=== PATIENT | male | born 1945 | race Caucasian/White ===

== ENCOUNTER 2016-05-18 10:34 | Emergency (ER) | payer MEDICARE, OTHER ==
[~2016-05-18] VITALS: Ht 172.7 cm; Wt 80.9 kg
[~2016-05-18 10:34] MED LIST: ADVAIR 250/28 DISKU1 IH; ALEVE 220MG220 MG PO; ALLEGRA-D 12 HO1 TER PO; AMARYL; AMARYL4 MG PO; AMBIEN 5MG TABLE5 MG PO; AMOXICILLIN 8751 TAB PO; ASPIRIN 32325 MG/TAB PO; B-121000 MCG PO; CALCIUM 600MG+D1 TAB PO; CARDURA4 MG PO; CENTRUM SILVER1 TAB PO; CEPHALEXIN500 M1 PO; CLINDAMYCIN HC150 MG PO; CLINDAMYCIN150 MG PO; CYCLOBENZAPRINE10 MG PO; DAZIDOX10 MG PO; DOXAZOSIN4 MG PO; FLAGYL500 MG PO; FLEXERIL 1010 MG/TAB PO; GLUCOPHAGE XR750 MG PO; GLUCOPHAGE1000 MG PO; GLUCOSAMINE & C1 CA1 PO; HCTZ 25MG TAB25 MG PO; IBIFON 600600 MG PO; INDERAL 20MG20 MG PO; LANTUS100 U/ML SQ; LEVAQUIN 5500 MG/TAB PO; LEVAQUIN 750MG750 M1 PO; LEVEMIR100 U/ML SC; LEVEMIR100 U/ML SQ; LIPITOR 10MG10 MG PO; LIPITOR20 MG PO; LORTAB 5/500 501 TAB PO; MAG-OX 400400 MG/TAB PO; MULTIPLE VITAMI1 CAP PO; MYSOLINE 5050 MG/TAB PO; NATURE'S BLEND400 IU PO; NOVOLOG 100U100 U/M1 SQ; NOVOLOG FLEX100 U/ML SQ; OCUVITE1 TA1 PO; OMEGA-3 FISH1000 MG PO; PERCOCET 325 MG1 TA2 PO; PERCR 7.5 PO; PREVACID 30MG30 M1 PO; PRINIVIL10 MG PO; PROSCAR 5MG5 MG PO; SLEEPING PILL; TYLENOL 500MG500 MG PO; TYLENOL ARTHRI650 M1 PO; VALIUM 5MG T5 MG/TAB PO; VITAMIN B121000 MC2 SL; VITAMIN E1000 U/CAP PO
[2016-05-18 11:13] VITALS: BP 169/97; PULSE 65; TEMP 98.4
[2016-05-18] MEDS ORDERED: NOVOLOG 100U100 U/M1 SQ (11:52)
[2016-05-18] MEDS ORDERED: CEPHALEXIN500 M1 PO ×2 (12:27→12:30)
== END 2016-05-18 12:33 | disposition home or self-care (01) ==
LOC: COL.ER 10:34
DX: S61.432A Puncture wound without foreign body of left hand, initial encounter (principal); W26.0XXA Contact with knife, initial encounter; E11.9 Type 2 diabetes mellitus without complications; Z79.4 Long term (current) use of insulin

== ENCOUNTER 2016-05-27 09:42 | Emergency (ER) | payer MEDICARE, OTHER ==
[~2016-05-27] VITALS: Ht 172.7 cm; Wt 79.5 kg
[2016-05-27 09:55] VITALS: BP 101/63; TEMP 98
[2016-05-27] MEDS ORDERED: PREDNISONE20 MG PO (11:03)
[2016-05-27] MEDS ORDERED: ZITHROMAX 250M250 MG PO (11:03)
[2016-05-27] MEDS ORDERED: VENTOLIN0.09 MG IH (11:03)
[2016-05-27 11:09] VITALS: PULSE 74
== END 2016-05-27 11:14 | disposition home or self-care (01) ==
LOC: COL.ER 09:42
DX: J20.9 Acute bronchitis, unspecified (principal); E11.9 Type 2 diabetes mellitus without complications; I10 Essential (primary) hypertension
CPT/HCPCS: J7512

== ENCOUNTER 2016-07-03 22:13 | Emergency (ER) | payer MEDICARE, OTHER ==
[~2016-07-03] VITALS: Ht 172.7 cm; Wt 79.1 kg
[~2016-07-03 22:13] MED LIST changes: +PREDNISONE20 MG PO; +VENTOLIN0.09 MG IH; +ZITHROMAX 250M250 MG PO
[2016-07-03 22:17] VITALS: BP 144/79; PULSE 64; TEMP 97.9
[2016-07-03] MEDS ORDERED: PROSCAR 5MG5 MG PO (22:25)
[2016-07-03] MEDS ORDERED: AMOXICILLIN 8751 TAB PO (23:06)
== END 2016-07-03 23:10 | disposition home or self-care (01) ==
LOC: COL.ER 22:13
DX: S61.052A Open bite of left thumb without damage to nail, initial encounter (principal); S61.452A Open bite of left hand, initial encounter; S50.812A Abrasion of left forearm, initial encounter; W55.01XA Bitten by cat, initial encounter; Y92.009 Unspecified place in unspecified non-institutional (private) residence as the place of occurrence of the external cause; E11.9 Type 2 diabetes mellitus without complications; I10 Essential (primary) hypertension; Z79.4 Long term (current) use of insulin

== ENCOUNTER → 2016-07-09 | Outpatient (CLI) | payer MEDICARE, OTHER | LOC: MHCPAIN 09:10 | DX: G89.29 Other chronic pain (principal); M47.812 Spondylosis without myelopathy or radiculopathy, cervical region; R51 Headache | CPT/HCPCS: G0463 ==

== ENCOUNTER → 2016-07-11 | Outpatient (CLI) | payer MEDICARE, OTHER | LOC: MHCPAIN 10:57 | DX: M50.821 Other cervical disc disorders at C4-C5 level (principal); M50.822 Other cervical disc disorders at C5-C6 level ==

== ENCOUNTER → 2016-07-17 | Outpatient (CLI) | payer MEDICARE, OTHER | LOC: MHCPAIN 09:17 | DX: G89.29 Other chronic pain (principal); M50.90 Cervical disc disorder, unspecified, unspecified cervical region; R51 Headache | CPT/HCPCS: G0463 ==

== ENCOUNTER → 2016-07-25 | Outpatient (CLI) | payer MEDICARE, OTHER | LOC: MHCPAIN 10:55 | DX: M50.90 Cervical disc disorder, unspecified, unspecified cervical region (principal) ==

== ENCOUNTER → 2016-07-31 | Outpatient (CLI) | payer MEDICARE, OTHER | LOC: MHCPAIN 09:41 | DX: G89.29 Other chronic pain (principal); M50.90 Cervical disc disorder, unspecified, unspecified cervical region; M54.81 Occipital neuralgia; R51 Headache | CPT/HCPCS: G0463 ==

== ENCOUNTER 2016-08-01 16:02 | Emergency (ER) | payer MEDICARE, OTHER ==
[~2016-08-01] VITALS: Ht 172.7 cm; Wt 79.5 kg
[2016-08-01 16:04] VITALS: BP 126/64; TEMP 97.8
[2016-08-01 17:19] VITALS: PULSE 68
== END 2016-08-01 17:18 | disposition home or self-care (01) ==
LOC: COL.ER 16:02
DX: S60.222A Contusion of left hand, initial encounter (principal); W22.8XXA Striking against or struck by other objects, initial encounter; Y92.009 Unspecified place in unspecified non-institutional (private) residence as the place of occurrence of the external cause; E11.9 Type 2 diabetes mellitus without complications; Z79.4 Long term (current) use of insulin

== ENCOUNTER → 2016-08-08 | Outpatient (CLI) | payer MEDICARE, OTHER | LOC: MHCPAIN 10:30 | DX: M50.90 Cervical disc disorder, unspecified, unspecified cervical region (principal) ==

== ENCOUNTER → 2016-08-15 | Outpatient (CLI) | payer MEDICARE, OTHER | LOC: MHCPAIN 10:34 | DX: M50.322 Other cervical disc degeneration at C5-C6 level (principal) | CPT/HCPCS: J2250; J3010 ==

== ENCOUNTER → 2016-10-15 | Outpatient (CLI) | payer MEDICARE, OTHER | LOC: MHCPAIN 09:56 | DX: G89.29 Other chronic pain (principal); M50.90 Cervical disc disorder, unspecified, unspecified cervical region; Z87.891 Personal history of nicotine dependence; Z79.82 Long term (current) use of aspirin | CPT/HCPCS: G0463 ==

== ENCOUNTER → 2016-11-01 | Outpatient (CLI) | payer MEDICARE, OTHER | LOC: ZCOL.LAB 17:46 | DX: J32.0 Chronic maxillary sinusitis (principal) ==

== ENCOUNTER → 2017-02-12 | Outpatient (CLI) | payer MEDICARE, OTHER | LOC: COL.RAD 11:05 | DX: M19.012 Primary osteoarthritis, left shoulder (principal); M19.011 Primary osteoarthritis, right shoulder; M75.81 Other shoulder lesions, right shoulder; R91.1 Solitary pulmonary nodule ==

== ENCOUNTER → 2017-04-09 | Emergency (ER) | payer MEDICARE, OTHER ==
[~2017-04-09] VITALS: Ht 172.7 cm; Wt 79.5 kg
[~2017-04-09] MED LIST changes: +TAMIFLU 75MG75 MG PO
[2017-04-09 07:36] LABS: BASO % 0.5 % (0.0-2.0); EOS # 0.1 (0.0-0.7); EOS % 1.7 % (0-4.0); GRAN # 5.7 (1.4-6.5); GRAN % 72.3 % (42.2-75.2); HEMATOCRIT 47.1 % (42.0-52.0); HEMOGLOBIN 16.1 g/dl (13.5-18.0); LYMPH % 12.2 % (20.0-51.0); MEAN CELL VOLUME 94 fl (80.0-100.0); MEAN CORPUSCULAR HEMOGLOBIN 32 pg (27.0-31.0); MEAN CORPUSCULAR HGB CONC 34 g/dl (33.0-37.0); MEAN PLATELET VOLUME 9.2 fl (7.4-10.4); MONO % 12.8 % (1.7-9.3); PLATELET COUNT 152 K/mm3 (130-400); REDCELL DISTRIBUTION WIDTH-CV 13.2 % (11.5-14.5)
[2017-04-09 07:45] LABS: ALBUMIN 4.1 gm/dL (3.5-5.0); BILIRUBIN,TOTAL 0.6 mg/dL (0.0-1.0); CALCIUM 9.4 mg/dL (8.4-10.2); CREATININE, serum 1.65 mg/dL (0.66-1.25); POTASSIUM 4.4 mmol/L (3.4-5.0); TOTAL PROTEIN 7.2 gm/dL (6.4-8.2)
[2017-04-09 07:48] LABS: PARTIAL THROMBOPLASTIN TIME 29.6 SECONDS (26.0-37.0)
[2017-04-09 07:57] LABS: TROPONIN-I 0.015 ng/mL (0.000-0.034)
[2017-04-09 09:44] VITALS: BP 132/74; PULSE 71; TEMP 99.8
== END ==
LOC: COL.ER 06:59
PROVIDERS: Family Medicine
DX: J10.1 Influenza due to other identified influenza virus with other respiratory manifestations (principal); E11.9 Type 2 diabetes mellitus without complications; Z79.82 Long term (current) use of aspirin; Z79.4 Long term (current) use of insulin

== ENCOUNTER 2017-05-22 13:42 | Emergency (ER) | payer MEDICARE, OTHER ==
[~2017-05-22] VITALS: Ht 172.7 cm; Wt 78.2 kg
[2017-05-22 13:50] VITALS: BP 128/61; PULSE 56; TEMP 98.4
[2017-05-22] MEDS ORDERED: OXY IR5 MG PO (14:48)
== END 2017-05-22 15:13 | disposition home or self-care (01) ==
LOC: COL.ER 13:42
DX: M25.511 Pain in right shoulder (principal); G89.18 Other acute postprocedural pain; E11.9 Type 2 diabetes mellitus without complications; Z98.890 Other specified postprocedural states; Z79.82 Long term (current) use of aspirin; Z79.4 Long term (current) use of insulin
CPT/HCPCS: J2270; J2550

== ENCOUNTER 2018-08-23 09:33 | Emergency (ER) | payer MEDICARE ==
[~2018-08-23] VITALS: Ht 172.7 cm; Wt 77.3 kg
[~2018-08-23 09:33] MED LIST changes: +OXY IR5 MG PO
[2018-08-23] MEDS ORDERED: PERCOCET 325 MG1 TA2 PO (11:20)
[2018-08-23 12:01] VITALS: BP 110/62; PULSE 58; TEMP 99.2
== END 2018-08-23 12:02 | disposition home or self-care (01) ==
LOC: COL.ER 09:33
DX: M72.2 Plantar fascial fibromatosis (principal); E11.649 Type 2 diabetes mellitus with hypoglycemia without coma; Z79.4 Long term (current) use of insulin; Z79.82 Long term (current) use of aspirin

== ENCOUNTER 2018-11-02 10:38 | Emergency (ER) | payer MEDICARE ==
[~2018-11-02] VITALS: Ht 172.7 cm; Wt 77.0 kg
[2018-11-02 10:50] VITALS: BP 132/62; TEMP 98.6
[2018-11-02 12:35] VITALS: PULSE 55
== END 2018-11-02 12:36 | disposition home or self-care (01) ==
LOC: COL.ER 10:38
DX: S76.012A Strain of muscle, fascia and tendon of left hip, initial encounter (principal); S20.212A Contusion of left front wall of thorax, initial encounter; I10 Essential (primary) hypertension; E10.9 Type 1 diabetes mellitus without complications; E78.5 Hyperlipidemia, unspecified; Z90.49 Acquired absence of other specified parts of digestive tract; Z79.4 Long term (current) use of insulin; Z79.82 Long term (current) use of aspirin; W18.2XXA Fall in (into) shower or empty bathtub, initial encounter; Y92.009 Unspecified place in unspecified non-institutional (private) residence as the place of occurrence of the external cause
CPT/HCPCS: A9284

== ENCOUNTER 2019-04-03 11:16 | Emergency (ER) | payer MEDICARE ==
[~2019-04-03] VITALS: Ht 172.7 cm; Wt 74.8 kg
[2019-04-03 11:23] VITALS: TEMP 98.3
[2019-04-03] MEDS ORDERED: CEPHALEXIN500 M1 PO (11:41)
[2019-04-03 12:10] VITALS: BP 99/72; PULSE 61
== END 2019-04-03 12:25 | disposition home or self-care (01) ==
LOC: COL.ER 11:16
DX: S71.112A Laceration without foreign body, left thigh, initial encounter (principal); Z79.82 Long term (current) use of aspirin; Z79.4 Long term (current) use of insulin; W31.2XXA Contact with powered woodworking and forming machines, initial encounter; Y92.009 Unspecified place in unspecified non-institutional (private) residence as the place of occurrence of the external cause

== ENCOUNTER → 2020-06-05 | Outpatient (CLI) | payer MEDICARE ==
[~2020-06-05] MED LIST changes: +ASPIRIN 81M81 MG/TA2 PO; +CRESTOR40 MG PO; +ELIQUIS 5MG PO; +NEURONTIN600 MG/TAB PO; +ROXICODONE 55 MG/TAB PO; +ZANAFLEX CAPSULE4 MG PO
== END ==
LOC: COL.RAD 05-19 14:15
DX: N18.31 Chronic kidney disease, stage 3a (principal)

== ENCOUNTER 2020-07-03 10:37 | Observation (INO) | payer MEDICARE ==
[~2020-07-03] VITALS: Ht 175.3 cm; Wt 72.7 kg
[~2020-07-03 10:37] MED LIST changes: -ASPIRIN 81M81 MG/TA2 PO; -CRESTOR40 MG PO; -ELIQUIS 5MG PO; -NEURONTIN600 MG/TAB PO; -ROXICODONE 55 MG/TAB PO; -ZANAFLEX CAPSULE4 MG PO
[2020-07-03 12:33] LABS: BASO # 0.1 (0.0-0.2); BASO % 0.8 % (0.0-2.0); EOS # 0.2 (0.0-0.7); EOS % 2.3 % (0-4.0); GRAN % 66.2 % (42.2-75.2); HEMOGLOBIN 14.7 g/dl (13.5-18.0); LYMPH # 1.8 (1.2-3.4); LYMPH % 19.9 % (20.0-51.0); MEAN CELL VOLUME 94 fl (80.0-100.0); MEAN CORPUSCULAR HEMOGLOBIN 32 pg (27.0-31.0); MEAN CORPUSCULAR HGB CONC 34 g/dl (33.0-37.0); MEAN PLATELET VOLUME 9.6 fl (7.4-10.4); MONO # 0.9 (0.1-0.6); MONO % 10.4 % (1.7-9.3); PLATELET COUNT 142 K/mm3 (130-400); REDCELL DISTRIBUTION WIDTH-CV 13.6 % (11.5-14.5)
[2020-07-03 12:42] LABS: ALBUMIN 3.9 gm/dL (3.5-5.0); BILIRUBIN,TOTAL 0.4 mg/dL (0.0-1.0); CALCIUM 8.9 mg/dL (8.4-10.2); CREATININE, serum 1.51 (0.66-1.25); POTASSIUM 5.3 mmol/L (3.4-5.0); TOTAL PROTEIN 7.5 gm/dL (6.4-8.2)
[2020-07-03 12:45] LABS: INR 1.1 (0.8-3.0); PROTHROMBIN TIME 12.3 SECONDS (9.7-12.8)
[2020-07-03 12:47] LABS: PARTIAL THROMBOPLASTIN TIME 29.2 SECONDS (26.0-37.0)
[2020-07-03 13:09] LABS: TROPONIN-I 0.182 ng/mL (0.000-0.035)
[2020-07-03] MEDS ORDERED: ASPIRIN 81M81 MG/TA2 PO (15:44)
[2020-07-03] MEDS ORDERED: NEURONTIN600 MG/TAB PO (15:50)
[2020-07-03] MEDS ORDERED: ZANAFLEX CAPSULE4 MG PO (15:51)
--- NOTE | 2020-07-03 16:04 | NUR ---
Report recieved from LUCIAN Reyes.
[2020-07-03 16:52] LABS: CHOLESTEROL RISK RATIO 6.1; MAGNESIUM 1.7 mg/dL (1.6-2.3)
[2020-07-03 16:57] VITALS: BP 102/51; PULSE 68; TEMP 98.7
--- NOTE | 2020-07-03 18:04 | NUR ---
Patient transferred up from the ED via WC. Patient admitted for DVT's in LLE and bilateral PE's. Upon initial assessment, patient did not C/O SOB or chest pain. Lung sounds were clear in all lobes, normal S1 and S2 present, bowel sounds present in all four quadrants, +2 radial and pedal pulsed present bilaterally. LLE was red and +1 edema was present. No other skin issues noted. VSS. ED heparin drip DC'd as ordered. Contacted MYRA De Oliveira about regarding this, new orders to be placed. Patient low fall risk, aware of limitations. Will continue to monitor. Call light within reach.
--- NOTE | 2020-07-03 18:45 | NUR ---
Report received, assumed care for rn night. Assessment complete. VS stable. A&Ox3. Denies pain/nausea/shortness of breath. Heparin restarted at this time @13ml/hr to right forearm 20g. Left lower extremity reddened/erythema with tight skin. States he only has pain when he is up out of bed. Plan of care discussed for this shift to include HS meds/glucose checks/heparin and lab draws. Verbalizes understanding/denies questions/concerns. Call light in reach-will monitor.
[2020-07-03 21:23] VITALS: BP 126/65; PULSE 61; TEMP 98.3
--- NOTE | 2020-07-03 22:45 | NUR ---
Oxycodone given per dr order for pain in left lower extremity-rates pain 6/10 on pain scale-described as constant throbbing. Will continue to monitor.
[2020-07-04 00:42] VITALS: BP 117/50; PULSE 66; TEMP 98.7
--- NOTE | 2020-07-04 02:00 | NUR ---
HepXa therapuetic range. NO change in drip rate. Will recheck at 0800
[2020-07-04 05:05] VITALS: BP 140/62; PULSE 61; TEMP 98.1
[2020-07-04 07:36] VITALS: BP 129/72; PULSE 52; TEMP 98.5
[2020-07-04 08:46] LABS: CALCIUM 8.4 mg/dL (8.4-10.2); CREATININE, serum 1.53 (0.66-1.25); MAGNESIUM 1.8 mg/dL (1.6-2.3); POTASSIUM 4.6 mmol/L (3.4-5.0)
[2020-07-04 08:56] LABS: BASO # 0.1 (0.0-0.2); BASO % 0.6 % (0.0-2.0); EOS # 0.5 (0.0-0.7); GRAN # 3.1 (1.4-6.5); GRAN % 39.1 % (42.2-75.2); HEMATOCRIT 42.2 % (42.0-52.0); LYMPH # 3.5 (1.2-3.4); LYMPH % 44.1 % (20.0-51.0); MEAN CELL VOLUME 96 fl (80.0-100.0); MEAN CORPUSCULAR HEMOGLOBIN 32 pg (27.0-31.0); MEAN CORPUSCULAR HGB CONC 33 g/dl (33.0-37.0); MEAN PLATELET VOLUME 9.5 fl (7.4-10.4); MONO # 0.8 (0.1-0.6); MONO % 9.8 % (1.7-9.3); PLATELET COUNT 149 K/mm3 (130-400); REDCELL DISTRIBUTION WIDTH-CV 13.8 % (11.5-14.5)
[2020-07-04 09:16] LABS: TROPONIN-I 0.175 ng/mL (0.000-0.035)
--- NOTE | 2020-07-04 10:08 | NUR ---
Assessment completed, alert/oriented, vital signs stable, denies pain at this time, heart RRR/ SR on tele, no reps.difficulty noted, lungs CTA/ and is on room air, heparin gtt adjusted down to 10.5/ hr (1050 units/hr), will recheck hepXa at 1500 today, had ECHO this morning, he is sitting up eating breakfast, [facility]
[2020-07-04 11:27] VITALS: BP 135/61; PULSE 62; TEMP 98.4
--- NOTE | 2020-07-04 11:44 | NUR ---
Elevator Erector attended clinical rounds with the team and patient is a possible discharge today pending PT evaluation. Following rounds, SW met with patient to discuss discharge plan. Patient lives [place] of [place] with his son, Helio and his service dog. Patient sees Dr. Nunez for primary care and obtains medications from [facility] pharmacy. Patient does not use any DME and reports independence with ADLS. Patient has Advance Directives in EMR which designate his son, Helio as DPOA-HC. Patient plans to return home upon discharge and intends to drive himself home. Patient states his son, Helio will drive to [place] upon discharge and bring patient's service dog up to him for the drive home. PT evaluated patient and they recommend home. Discharge Plan: Home
[2020-07-04] MEDS ORDERED: ROXICODONE 55 MG/TAB PO (14:35)
[2020-07-04] MEDS ORDERED: ELIQUIS 5MG PO (14:37)
[2020-07-04] MEDS ORDERED: CRESTOR40 MG PO (14:37)
--- NOTE | 2020-07-04 16:36 | NUR ---
Discharge order discussed with the patient, instructed him to follow up with as we have scheduled for him, instructed him to take Eliquis as prescribed, scripts for Eliquis/Crestor/Oxycodone sent to [facility] pharmacy for him, IV and tele removed, I escorted him out the door by wheelchair
== END 2020-07-04 16:37 | disposition home or self-care (01) ==
LOC: COL.ER 10:37 → MEDICAL 14:27
PROVIDERS: Emergency Medicine; Physician Assistant; ADMIT Family Medicine
DX: I26.99 Other pulmonary embolism without acute cor pulmonale (principal); E11.22 Type 2 diabetes mellitus with diabetic chronic kidney disease; I12.9 Hypertensive chronic kidney disease with stage 1 through stage 4 chronic kidney disease, or unspecified chronic kidney disease; N18.30 Chronic kidney disease, stage 3 unspecified; E11.40 Type 2 diabetes mellitus with diabetic neuropathy, unspecified; I82.402 Acute embolism and thrombosis of unspecified deep veins of left lower extremity; I77.819 Aortic ectasia, unspecified site; R74.8 Abnormal levels of other serum enzymes; E78.5 Hyperlipidemia, unspecified; E87.5 Hyperkalemia; N40.0 Benign prostatic hyperplasia without lower urinary tract symptoms; Z88.2 Allergy status to sulfonamides; Z88.6 Allergy status to analgesic agent; Z88.1 Allergy status to other antibiotic agents; Z96.611 Presence of right artificial shoulder joint; Z96.642 Presence of left artificial hip joint; Z79.899 Other long term (current) drug therapy; Z79.4 Long term (current) use of insulin; Z79.891 Long term (current) use of opiate analgesic; Z79.82 Long term (current) use of aspirin; Z87.891 Personal history of nicotine dependence
CPT/HCPCS: G0378; J1644; J1815; J7030; Q9967

== ENCOUNTER 2020-08-15 21:37 | Emergency (ER) | payer MEDICARE ==
[~2020-08-15] VITALS: Ht 175.3 cm; Wt 79.5 kg
[~2020-08-15 21:37] MED LIST changes: +ASPIRIN 81M81 MG/TA2 PO; +CRESTOR40 MG PO; +ELIQUIS 5MG PO; +NEURONTIN600 MG/TAB PO; +ROXICODONE 55 MG/TAB PO; +ZANAFLEX CAPSULE4 MG PO
[2020-08-15 22:25] LABS: BASO # 0.1 (0.0-0.2); BASO % 0.9 % (0.0-2.0); EOS # 0.3 (0.0-0.7); EOS % 3.1 % (0-4.0); GRAN # 5.5 (1.4-6.5); HEMOGLOBIN 15.2 g/dl (13.5-18.0); LYMPH # 3.2 (1.2-3.4); LYMPH % 32.2 % (20.0-51.0); MEAN CELL VOLUME 92 fl (80.0-100.0); MEAN CORPUSCULAR HEMOGLOBIN 32 pg (27.0-31.0); MEAN CORPUSCULAR HGB CONC 35 g/dl (33.0-37.0); MEAN PLATELET VOLUME 10.2 fl (7.4-10.4); MONO # 0.8 (0.1-0.6); MONO % 8.3 % (1.7-9.3); PLATELET COUNT 170 K/mm3 (130-400); REDCELL DISTRIBUTION WIDTH-CV 13.2 % (11.5-14.5)
[2020-08-15 22:36] LABS: ALANINE AMINOTRANSFERASE 19 U/L (4-49); ALBUMIN 4.2 gm/dL (3.5-5.0); ALKALINE PHOSPHATASE 63 U/L (50-136); ANION GAP 11 mmol/L (7-16); AST,SGOT 25 U/L (15-37); BILIRUBIN,TOTAL 0.5 mg/dL (0.0-1.0); BLOOD UREA NITROGEN 43 mg/dL (9-20); CALCIUM 9.4 mg/dL (8.4-10.2); CARBON DIOXIDE 17 mmol/L (22-30); CHLORIDE 110 mmol/L (98-107); CREATININE, serum 1.95 (0.66-1.25); GLUCOSE 129 mg/dL (74-106); POTASSIUM 4.3 mmol/L (3.4-5.0); SODIUM 138 mmol/L (137-145); TOTAL PROTEIN 7.8 gm/dL (6.4-8.2)
[2020-08-15 22:51] LABS: TROPONIN-I < 0.012 ng/mL (0.000-0.035)
[2020-08-15 23:34] VITALS: BP 119/82; PULSE 67; TEMP 98.6
== END 2020-08-15 23:30 | disposition home or self-care (01) ==
LOC: COL.ER 21:37
PROVIDERS: Emergency Medicine
DX: S37.009A Unspecified injury of unspecified kidney, initial encounter (principal); E11.22 Type 2 diabetes mellitus with diabetic chronic kidney disease; I12.9 Hypertensive chronic kidney disease with stage 1 through stage 4 chronic kidney disease, or unspecified chronic kidney disease; N18.30 Chronic kidney disease, stage 3 unspecified; J45.909 Unspecified asthma, uncomplicated; N40.0 Benign prostatic hyperplasia without lower urinary tract symptoms; Z86.711 Personal history of pulmonary embolism; Z79.01 Long term (current) use of anticoagulants; Z79.899 Other long term (current) drug therapy; Z79.4 Long term (current) use of insulin; Z79.82 Long term (current) use of aspirin; X08.8XXA Exposure to other specified smoke, fire and flames, initial encounter

== ENCOUNTER 2020-10-12 15:05 | Outpatient (CLI) | payer MEDICARE ==
[~2020-10-12] VITALS: Ht 175.3 cm; Wt 80.5 kg
[2020-10-12 16:36] VITALS: BP 108/62; PULSE 58; TEMP 96.5
[2020-10-12] MEDS ORDERED: ELIQUIS 5MG PO (16:39)
[2020-10-12 17:44] LABS: CALCIUM 7.4 mg/dL (8.4-10.2); CREATININE, serum 2.4 (0.66-1.25); POTASSIUM 4.5 mmol/L (3.4-5.0)
== END 2020-10-12 17:40 | disposition home or self-care (01) ==
LOC: EUO 15:05
PROVIDERS: Registered Nurse
DX: N17.9 Acute kidney failure, unspecified (principal)
CPT/HCPCS: J7030

== ENCOUNTER 2020-12-19 14:29 | Emergency (ER) | payer MEDICARE ==
[~2020-12-19] VITALS: Ht 172.7 cm; Wt 77.3 kg
[2020-12-19 15:07] VITALS: BP 126/69; TEMP 98.3
[2020-12-19 16:19] VITALS: PULSE 89
== END 2020-12-19 16:20 | disposition home or self-care (01) ==
LOC: COL.ER 14:29
DX: M79.671 Pain in right foot (principal); E11.65 Type 2 diabetes mellitus with hyperglycemia; N17.9 Acute kidney failure, unspecified; Z88.6 Allergy status to analgesic agent; Z79.4 Long term (current) use of insulin; Z79.01 Long term (current) use of anticoagulants; W20.8XXA Other cause of strike by thrown, projected or falling object, initial encounter

== ENCOUNTER → 2021-03-20 | Outpatient (CLI) | payer MEDICARE | LOC: COL.RAD 11:06 | DX: R07.81 Pleurodynia (principal); Z86.711 Personal history of pulmonary embolism | CPT/HCPCS: A9540; A9567 ==

== ENCOUNTER 2023-09-25 12:45 | Emergency (ER) | payer MEDICARE ==
[~2023-09-25] VITALS: Ht 172.7 cm; Wt 72.7 kg
[~2023-09-25 12:45] MED LIST changes: +CLEOCIN HCL300 MG PO
[2023-09-25 12:53] VITALS: TEMP 97.7
[2023-09-25 14:18] LABS: BASO # 0.1 K/mm3 (0.0-0.2); BASO % 0.7 % (0.0-2.0); EOS # 0.2 K/mm3 (0.0-0.7); EOS % 2.6 % (0.0-4.0); GRAN # 4.8 K/mm3 (1.4-6.5); GRAN % 61.8 % (42.2-75.2); HEMATOCRIT 46.5 % (42.0-52.0); HEMOGLOBIN 15.3 g/dl (13.5-18.0); LYMPH # 2.1 K/mm3 (1.2-3.4); LYMPH % 27.7 % (20.0-51.0); MEAN CELL VOLUME 97 fl (80.0-100.0); MEAN CORPUSCULAR HEMOGLOBIN 32 pg (27-31); MEAN CORPUSCULAR HGB CONC 33 g/dl (33.0-37.0); MEAN PLATELET VOLUME 9.2 fl (7.4-10.4); MONO # 0.5 K/mm3 (0.1-0.6); MONO % 6.8 % (1.7-9.3); PLATELET COUNT 185 K/mm3 (130-400); REDCELL DISTRIBUTION WIDTH-CV 13.5 % (11.5-14.5)
[2023-09-25 14:21] LABS: INR 1.1 (0.8-3.0); PROTHROMBIN TIME 12.4 SECONDS (9.7-12.8)
[2023-09-25 14:29] LABS: ALANINE AMINOTRANSFERASE 16 U/L (0-55); ALBUMIN 3.6 g/dL (3.4-4.8); ALKALINE PHOSPHATASE 60 U/L (40-150); ANION GAP 9 mmol/L (7-16); AST,SGOT 14 U/L (5-34); BILIRUBIN,TOTAL 0.4 mg/dL (0.2-1.2); BLOOD UREA NITROGEN 40 mg/dL (8-26); CALCIUM 9.8 mg/dL (8.4-10.2); CHLORIDE 107 mEq/L (98-107); CREATININE, serum 2.03 mg/dL (0.72-1.25); GLUCOSE 177 mg/dL (70-99); POTASSIUM 4.3 mEq/L (3.5-4.5); SODIUM 138 mEq/L (136-145); TOTAL PROTEIN 7.4 g/dl (6.2-8.1)
[2023-09-25 14:35] LABS: TROPONIN-I < 0.010 ng/mL (0.00-0.033)
[2023-09-25] MEDS ORDERED: Iohexol 300 - 100 ML VIAL IV ONE (15:00)
[2023-09-25] MEDS ORDERED: NS 100 ML IV SCH (15:01)
[2023-09-25 15:23] LABS: COLLECTION METHOD CLEAN CATCH
[2023-09-25] MEDS ORDERED: NS 1,000 ML IV ONE (15:30)
[2023-09-25 15:34] LABS: URINE APPEARANCE CLEAR (CLEAR/HAZY); URINE BLOOD NEGATIVE (NEGATIVE); URINE COLOR YELLOW (YELLOW); URINE GLUCOSE 2+ (NEGATIVE); URINE KETONE NEGATIVE (NEGATIVE); URINE NITRATE NEGATIVE (NEGATIVE); URINE PROTEIN(semi-quant) 2+ (NEGATIVE)
[2023-09-25 15:39] LABS: TRICYCLIC ANTIDEPRESS URINE NEGATIVE (NEGATIVE)
[2023-09-25] MEDS ORDERED: Clopidogrel 300 MG DOSE (75 mg x 4 tabs) PO ONE (16:45)
[2023-09-25 17:02] VITALS: BP 193/99; PULSE 65
== END 2023-09-25 17:02 | disposition short-term general hospital (02) ==
LOC: COL.ER 12:45
PROVIDERS: Family Medicine
DX: I77.74 Dissection of vertebral artery (principal); R42 Dizziness and giddiness; E11.9 Type 2 diabetes mellitus without complications; Z87.891 Personal history of nicotine dependence
CPT/HCPCS: J7030; Q9967

== ENCOUNTER 2023-11-22 11:05 | Emergency (ER) | payer MEDICARE ==
[~2023-11-22] VITALS: Ht 172.7 cm; Wt 75.0 kg
[2023-11-22 11:17] VITALS: BP 132/68; TEMP 98
[2023-11-22] MEDS ORDERED: DOXYCYCLINE 10100 MG PO (11:44)
[2023-11-22 11:52] VITALS: PULSE 85
== END 2023-11-22 11:53 | disposition home or self-care (01) ==
LOC: COL.ER 11:05
DX: T81.49XA Infection following a procedure, other surgical site, initial encounter (principal); Z87.891 Personal history of nicotine dependence

== ENCOUNTER 2023-12-16 14:39 | Inpatient (IN) | payer MEDICARE ==
[2023-12-16] VITALS (308 sets, daily range): BP systolic 112; BP diastolic 67; PULSE 63; TEMP 98.7; O2SAT 58–100
[~2023-12-16] VITALS: Ht 172.7 cm; Wt 63.4 kg
[~2023-12-16 14:39] MED LIST changes: +DOXYCYCLINE 10100 MG PO
[2023-12-16] MEDS ORDERED: NS 1,000 ML IV ONE ×2 (15:00→15:15)
[2023-12-16 15:20] LABS: BASO # 0.1 K/mm3 (0.0-0.2); BASO % 0.6 % (0.0-2.0); EOS # 0.1 K/mm3 (0.0-0.7); EOS % 1.1 % (0.0-4.0); GRAN # 5.1 K/mm3 (1.4-6.5); GRAN % 64.5 % (42.2-75.2); HEMATOCRIT 46.8 % (42.0-52.0); LYMPH # 2.2 K/mm3 (1.2-3.4); LYMPH % 27.4 % (20.0-51.0); MEAN CELL VOLUME 95 fl (80.0-100.0); MEAN CORPUSCULAR HEMOGLOBIN 33 pg (27-31); MEAN CORPUSCULAR HGB CONC 34 g/dl (33.0-37.0); MEAN PLATELET VOLUME 10.1 fl (7.4-10.4); MONO # 0.5 K/mm3 (0.1-0.6); PLATELET COUNT 157 K/mm3 (130-400); RED BLOOD COUNT 4.93 M/mm3 (4.20-5.60); REDCELL DISTRIBUTION WIDTH-CV 12.9 % (11.5-14.5)
[2023-12-16 15:27] LABS: INR 1.3 (0.8-3.0); PROTHROMBIN TIME 14.3 SECONDS (9.7-12.8)
[2023-12-16 15:29] LABS: PARTIAL THROMBOPLASTIN TIME 31.1 SECONDS (26.0-37.0)
[2023-12-16 15:40] LABS: ALANINE AMINOTRANSFERASE 17 U/L (0-55); ALBUMIN 3.3 g/dL (3.4-4.8); ALKALINE PHOSPHATASE 52 U/L (40-150); ANION GAP 11 mmol/L (7-16); AST,SGOT 13 U/L (5-34); BILIRUBIN,TOTAL 0.6 mg/dL (0.2-1.2); BLOOD UREA NITROGEN 36 mg/dL (8-26); CALCIUM 9.1 mg/dL (8.4-10.2); CHLORIDE 109 mEq/L (98-107); CREATININE, serum 2.51 mg/dL (0.72-1.25); GLUCOSE 384 mg/dL (70-99); POTASSIUM 4.4 mEq/L (3.5-4.5); SODIUM 136 mEq/L (136-145); TOTAL PROTEIN 6.7 g/dl (6.2-8.1)
[2023-12-16 15:42] LABS: ACETONE,SERUM NEGATIVE
[2023-12-16 15:45] LABS: TROPONIN-I 0.029 ng/mL (0.00-0.033)
[2023-12-16] MEDS ORDERED: cefTRIAXone 1 G in Water For Injection,Sterile 10 ML IV ONE (16:30)
[2023-12-16] MEDS ORDERED: Azithromycin 500 MG in NS 250 ML IV ONE (16:30)
[2023-12-16] MEDS ORDERED: NS 1,000 ML IV SCH (17:00)
[2023-12-16] MEDS ORDERED: Ondansetron 4 MG/2 ML VIAL IV PRN (17:00)
[2023-12-16] MEDS ORDERED: Polyethylene Glycol 3350 17 GM PDS PO PRN (17:00)
[2023-12-16] MEDS ORDERED: Docusate Sodium 100 MG CAP PO PRN (17:00)
[2023-12-16] MEDS ORDERED: Albuterol/Ipratropium 3 MG-0.5 MG/3 ML Neb Soln IH PRN (17:15)
[2023-12-16] MEDS ORDERED: Dextrose (Glucose) 15 GM (4 x 3.75 GM) Chewable TABLET PACK PO PRN (17:30)
[2023-12-16] MEDS ORDERED: Glucagon 1 MG VIAL IM PRN (17:30)
[2023-12-16] MEDS ORDERED: Dextrose 50% Water 25 GM/50 ML SYRINGE IV PRN (17:30)
--- NOTE | 2023-12-16 18:24 | NUR ---
PATIENT ARRIVED TO ROOM ICU 6. PATIENT AMBULATED FROM STRETCHER TO BED. ATTACHED TO CRITICAL CARE MONITORS. PATIENT ALERT AND ORIENTED. IV INFLUIDS INFUSING PER ORDERS. PATIENT HAS SERVICE DOG AT BEDSIDE, ASKED IF SOMEONE WOULD BE COMING TO SALESPERSON [employer] EQUIPMENT THE DOG, HE STATED HIS SON WOULD BE COMING AT 1999 TO RETRIEVE THE DOG. WOUNDS NOTED TO RIGHT LOWER EXTREMITY. WOUND TO GLUTEAL FOLD ON RIGHT SIDE, SCABBED OVER. APPROXIMATELY 1 BY 1 CM. PATIENT ORIENTED TO ROOM AND POLICIES. CALL LIGHT IS WITHIN REACH.
[2023-12-16] MEDS ORDERED: Apixaban 5 MG TABLET PO SCH (21:00)
[2023-12-16] MEDS ORDERED: Insulin Glargine-ygfn (Lantus) SQ SCH (21:00)
[2023-12-16] MEDS ORDERED: Doxycycline Monohydrate 100 MG CAP PO SCH (21:00)
[2023-12-16] MEDS ORDERED: NEURONTIN300 MG/CAP PO (21:20)
[2023-12-16] MEDS ORDERED: ZANAFLEX CAPSULE4 MG PO (21:22)
[2023-12-17] VITALS (655 sets, daily range): BP systolic 101–142; BP diastolic 54–95; PULSE 51–70; TEMP 97.6–98.9; O2SAT 76–100
[2023-12-17] MEDS ORDERED: Gabapentin 300 MG CAP PO SCH (01:44)
[2023-12-17] MEDS ORDERED: tiZANidine 4 MG TAB PO SCH (01:44)
[2023-12-17] MEDS ORDERED: Insulin Lispro (HumaLOG) SQ SCH (03:16)
[2023-12-17 05:27] LABS: BASO % 0.5 % (0.0-2.0); EOS # 0.2 K/mm3 (0.0-0.7); EOS % 2.6 % (0.0-4.0); GRAN % 57.5 % (42.2-75.2); HEMATOCRIT 37.4 % (42.0-52.0); LYMPH # 2.8 K/mm3 (1.2-3.4); LYMPH % 31.9 % (20.0-51.0); MEAN CELL VOLUME 94 fl (80.0-100.0); MEAN CORPUSCULAR HEMOGLOBIN 33 pg (27-31); MEAN CORPUSCULAR HGB CONC 35 g/dl (33.0-37.0); MEAN PLATELET VOLUME 9.5 fl (7.4-10.4); MONO # 0.6 K/mm3 (0.1-0.6); MONO % 7.2 % (1.7-9.3); PLATELET COUNT 146 K/mm3 (130-400); RED BLOOD COUNT 3.97 M/mm3 (4.20-5.60); REDCELL DISTRIBUTION WIDTH-CV 13.2 % (11.5-14.5)
[2023-12-17 05:46] LABS: CALCIUM 7.7 mg/dL (8.4-10.2); CREATININE, serum 1.85 mg/dL (0.72-1.25)
--- NOTE | 2023-12-17 07:00 | NUR ---
Report received from LUCIAN Louise; patient currently resting in bed with NS running through his peripheral line. No other lines or tubes are in place at this time. Patient's vital signs within normal limits this morning.
[2023-12-17] MEDS ORDERED: Finasteride 5 MG TAB PO SCH (09:00)
[2023-12-17] MEDS ORDERED: Pantoprazole 40 MG in NS 10 ML IV SCH (09:00)
[2023-12-17] MEDS ORDERED: Sodium Bicarbonate 650 MG TAB PO SCH (10:30)
[2023-12-17] MEDS ORDERED: cefTRIAXone 1 G in Water For Injection,Sterile 10 ML IV SCH (10:30)
--- NOTE | 2023-12-17 10:31 | NUR ---
Initial visit; Patient spoke of his unhappy state of being made to wait for services here at [facility]. Social Science Research Assistant addressed his complaints eventually reminding him that he is not the only patient the has and he might keep in mind that he is waiting for one of the best DrShashi's [facility] has. He will receive "top notch" care at our hospital. listened to his health history for the last year and experiences he's had a [place] and here and mentioned again that he is in good hands here and Social Science Research Assistant will indeed keep him in her prayers.
[2023-12-17] MEDS ORDERED: CRESTOR40 MG PO (11:55)
[2023-12-17] MEDS ORDERED: TOPAMAX 25MG25 M1 PO (12:01)
[2023-12-17] MEDS ORDERED: LANTUS SOLOS100 U/ML SQ ×2 (12:01→12:54)
[2023-12-17] MEDS ORDERED: SYNTHROID0.05 MG/TA PO (12:02)
[2023-12-17] MEDS ORDERED: PLAVIX 75MG TAB75 MG PO (12:02)
--- NOTE | 2023-12-17 12:03 | NUR ---
facilities maintenance worker attended interdisciplinary clinical rounding with Dr. Simpson. Patient should be able to move to the medical floor today if bed available. Dr Simpson discussed home health services and patient and his son, Helio, were interested in those services. LEO met with patient and his son, Helio, P# [phone], to discuss discharge plan. Patient lives with his son Helio near [place] but they are moving to [address] [place] [address] in [place] on the . PCP was Rosalia Nunez at [facility] but it was recently switched and he cannot remember the name. Pharmacy is [facility]. Insurance is Medicare [employer]. DPOA-HC is on the EMR which appoints Helio as primary then Alka listed as the alternate. Patient has cane, walkers and wheelchairs at home but does not use them at this time. Patient and son report patient has been independent with ADLS and has been able to transport himself to and from appointments for the most part. LEO discussed home health services and provided the Medicare.gov list for [place] and explained the ones listed on that form also cover [place]. Helio stated they would discuss this and would follow up with the social services analyst. Helio mentioned they would take any help needed and discussed that he works from 930-6 40 hours a week. LEO provided the private pay care giving list as well. No further questions or concerns at this time, social services analyst will follow up with patient and son about home health. LEO contacted Ruma at [facility] whom reports patient's new doctor is Dr. Wade. Patient had an appointment scheduled for 12/23/23 at 8:30 am with MYRA Lugo, but since patient would be discharging likely in the next couple days, they wanted to change the appointment to 12/19/23 at 10 am. Patient also has an appointment with Dr. Wade on August 09, 2024. LEO contacted Helio, patient's son, and updated him on the above information. Discharge plan: Home with home health
[2023-12-17] MEDS ORDERED: Lidocaine 4% Topical Patch TP SCH (15:00)
--- NOTE | 2023-12-17 18:00 | NUR ---
Patient refused skin assessments by this nurse. This nurse is aware that patient has a skin ulceration on his sacral/coccyx area. It is covered with a Mepilex per report from the restaurant shift supervisor nurse.
[2023-12-18] VITALS (11 sets, daily range): BP systolic 91–164; BP diastolic 59–96; PULSE 48–76; TEMP 96.8–99; O2SAT 94–95
--- NOTE | 2023-12-18 02:00 | NUR ---
REPORT RECEIVED FROM LUCIAN JOHNSON. ASSUMED PT CARE AT THIS TIME. PT ASKED TO WALK AROUND IN ROOM AND CHANGE PERSONAL UNDER GARMENTS. ONCE BACK TO BED, PT REPORTED TO THIS RN THAT HE HAS HAD A PRESSURE SORE ON HIS COCCYX FOR THE LAST SEVERAL MONTHS DUE TO SLEEPING IN A RECLINER WITH HIS SERVICE DOG. UPON ASSESSMENT, A DEEP TISSUE/UNSTAGABLE WOUND NOTED TO COCCYX, DEEP PURPLE, NON BLANCHING, WITH A 1 CM CIRCULAR SCABBED AREA. PER PT REQUEST, MEPELEX DRSG APPLIED, AND ENCOURAGED PT TO HAVE MD ASSESS THIS AM. PER REPORT, PT HAD PREVIOUSLY REFUSED ASSESSMENT OF BUTTOCKS AND SACRUM. ENCOURAGED PT TO LAY ON SIDE AND AVOID ADDITIONAL PRESSURE TO BACK. PT STATES UNDERSTANDING.
[2023-12-18 04:54] LABS: BASO % 0.4 % (0.0-2.0); EOS # 0.3 K/mm3 (0.0-0.7); EOS % 3.4 % (0.0-4.0); GRAN # 4.4 K/mm3 (1.4-6.5); GRAN % 46.6 % (42.2-75.2); HEMATOCRIT 39.2 % (42.0-52.0); HEMOGLOBIN 13.2 g/dl (13.5-18.0); LYMPH % 42.3 % (20.0-51.0); MEAN CELL VOLUME 95 fl (80.0-100.0); MEAN CORPUSCULAR HEMOGLOBIN 32 pg (27-31); MEAN CORPUSCULAR HGB CONC 34 g/dl (33.0-37.0); MEAN PLATELET VOLUME 9.5 fl (7.4-10.4); MONO # 0.7 K/mm3 (0.1-0.6); PLATELET COUNT 145 K/mm3 (130-400); RED BLOOD COUNT 4.11 M/mm3 (4.20-5.60); REDCELL DISTRIBUTION WIDTH-CV 13.5 % (11.5-14.5)
[2023-12-18 05:10] LABS: CALCIUM 7.9 mg/dL (8.4-10.2); CREATININE, serum 1.84 mg/dL (0.72-1.25); POTASSIUM 4.2 mEq/L (3.5-4.5)
[2023-12-18] MEDS ORDERED: Topiramate 25 MG TAB PO SCH (10:30)
[2023-12-18] MEDS ORDERED: Clopidogrel 75 MG TAB PO SCH (11:00)
[2023-12-18] MEDS ORDERED: Eye Formula MVI w/Minerals TABLET PO SCH (12:00)
--- NOTE | 2023-12-18 14:30 | NUR ---
Reported off to LUCIAN Sheriff; patient taken upstairs by wheelchair by LUCIAN Sheriff. Patient taken up with all belongings to room 323 on the surgical floor.
--- NOTE | 2023-12-18 19:00 | NUR ---
Received report from Sharita Arriola RN. Pt is alert and sitting in bed. Bed in low position, bed alarms on, and call light within reach. Pt had his son at bedside. No drips or IVF's running at this time. Will continue with pt care.
[2023-12-18] MEDS ORDERED: Rosuvastatin 40 MG **** subs to Atorvastatin 80 MG PO SCH (21:00)
[2023-12-18] MEDS ORDERED: Atorvastatin 80 MG TAB PO SCH (21:00)
[2023-12-19 01:00] VITALS: BP_SYST 112
[2023-12-19 04:10] VITALS: BP 139/77; PULSE 63; TEMP 97.7
[2023-12-19 05:00] VITALS: BP_SYST 139
--- NOTE | 2023-12-19 06:26 | NUR ---
Pt had an uneventful night. Pt denied pain throughout the shift. No drips or IVF's running at this time. Pt had a shower at the beginning of the shift. Pt is currently resting in bed with bed in low position, bed alarms on and call light within reach. Will give report to day shift nurse.
[2023-12-19 08:00] VITALS: BP 178/79; PULSE 55; TEMP 98.4
--- NOTE | 2023-12-19 08:00 | NUR ---
Pt. sitting up in bed eating breakfast. Pt. is A&OX3, assessment complete. INT to lt. forearm patent. Pt. denies pain or other needs at this time.
[2023-12-19] MEDS ORDERED: BLUE-EMU LIDOC1 EACH TP (08:23)
[2023-12-19] MEDS ORDERED: MONODOX100 PO (08:23)
[2023-12-19] MEDS ORDERED: ASPIRIN E.C. 8181 MG PO (08:26)
--- NOTE | 2023-12-19 08:28 | NUR ---
Late Entry: On 12/18/23, high school social science teacher attended interdisciplinary clinical rounding with Dr. Simpson. Patient is likely to discharge home with home health tomorrow. SW met with patient and discussed home health again. Patient stated he would like home health but would like it to start on January 01 due to them moving to [place]. SW relayed we can send the home health referral and the home health agency will follow up with him. SW provided the Medicare.gov list of home health for [place]. Patient wanted to speak with his son about which agency to choose.
[2023-12-19 09:00] VITALS: BP_SYST 178
--- NOTE | 2023-12-19 09:10 | NUR ---
LEO was informed pt will discharge today. LEO met with pt who chose [facility]. LEO faxed referral and discharge orders. LEO completed IM from Medicare with pt. He signed and verbalized understanding. Copy provided and original in chart. Discharge Plan: home with [facility]
--- NOTE | 2023-12-19 09:30 | NUR ---
Pt. ready for discharge. INT discontiued from lt. forearm. Reviewed and gave discharge paperwork. Pt. voices understanding. Pt. dressed and escorted out.
--- NOTE | 2023-12-19 13:01 | NUR ---
LEO received a call from [facility] declining pt due to staffing. LEO attempted to reach pt's phone and could not leave a vm. LEO left a voicemail to sonHelio informing him of the declination and that [facility] is out of [place] (where they are moving 01/01.) LEO faxed referral to [facility] due to pt/son not answering for other preference.
--- NOTE | 2023-12-22 11:51 | NUR ---
LEO spoke with Jerardo at [facility] who reports they cannot accept pt as a [employer] insurance due to them not paying. LEO faxed referral and orders to [facility].
== END 2023-12-19 09:30 | disposition home or self-care (01) | DRG 640 ==
LOC: COL.ER 14:39 → ICU 16:59 → SURG 12-18 15:00
PROVIDERS: Emergency Medicine; ADMIT Internal Medicine
DX: E86.0 Dehydration (principal); J18.9 Pneumonia, unspecified organism; N17.9 Acute kidney failure, unspecified; E78.5 Hyperlipidemia, unspecified; E87.20 Acidosis, unspecified; E11.51 Type 2 diabetes mellitus with diabetic peripheral angiopathy without gangrene; Z86.711 Personal history of pulmonary embolism; Z79.01 Long term (current) use of anticoagulants; Z86.718 Personal history of other venous thrombosis and embolism; E11.40 Type 2 diabetes mellitus with diabetic neuropathy, unspecified; N40.0 Benign prostatic hyperplasia without lower urinary tract symptoms; J45.909 Unspecified asthma, uncomplicated; E11.22 Type 2 diabetes mellitus with diabetic chronic kidney disease; I12.9 Hypertensive chronic kidney disease with stage 1 through stage 4 chronic kidney disease, or unspecified chronic kidney disease; N18.30 Chronic kidney disease, stage 3 unspecified; Z79.82 Long term (current) use of aspirin; Z79.4 Long term (current) use of insulin; Z87.891 Personal history of nicotine dependence; E11.65 Type 2 diabetes mellitus with hyperglycemia; E03.9 Hypothyroidism, unspecified; I95.9 Hypotension, unspecified
CPT/HCPCS: J0456; J0696; J1815; J2470; J2543; J7030; J7050